=== PATIENT | male | born 2000 | race African-American/Black ===

== ENCOUNTER 2023-09-07 20:18 | Emergency (ER) | payer OTHER ==
[~2023-09-07] VITALS: Ht 177.8 cm; Wt 64.0 kg
[2023-09-07 20:21] VITALS: BP 106/73; PULSE 106; RESP 14; TEMP 98.6; O2SAT 98
[2023-09-07] MEDS ORDERED: AMOX1TAB16 MT (21:01)
[2023-09-07] MEDS: BACITRACIN ZINC OINT UDPKT TOP ONE (22:05)
[2023-09-07] MEDS: AMOXICILLIN/POTASSIUM CLAVULANATE 875/125MG TAB PO ONE (22:06)
[2023-09-07] MEDS: TETANUS, DIPHTHERIA, PERTUSSIS VAC/PF 0.5ML (>10YR OLD) IM ONE (22:09)
[2023-09-07] MEDS: LIDOCAINE HCL/PF 1% 10 MG/ML 5ML VIAL INFIL ONE (22:09)
== END 2023-09-07 22:45 ==
LOC: ER 20:18
DX: S51.812A Laceration without foreign body of left forearm, initial encounter (principal); W54.0XXA Bitten by dog, initial encounter; Y93.89 Activity, other specified; Y92.89 Other specified places as the place of occurrence of the external cause; Y99.8 Other external cause status
CPT/HCPCS: 99283; 73630; 90715; 12001; 90471; J3490